=== PATIENT | male | born 1995 ===

== ENCOUNTER 2022-09-14 23:06 | Emergency (ER) | payer OTHER | END 2022-09-15 | disposition home or self-care (01) | LOC: MW.ED 23:06 | DX: G92.9 Unspecified toxic encephalopathy (principal); M25.512 Pain in left shoulder; V89.2XXA Person injured in unspecified motor-vehicle accident, traffic, initial encounter; Y92.410 Unspecified street and highway as the place of occurrence of the external cause | CPT/HCPCS: 73030-26-LT; 73030-LT; 99283 ==